=== PATIENT | female | born 1975 | race Caucasian/White ===

== ENCOUNTER 2018-09-14 20:09 | Emergency (ER) | payer BC ==
[2018-09-14] MEDS ORDERED: Sodium Chloride 0.9% 10 ML Syringe FLUSH PRN (20:30)
--- NOTE | 2018-09-14 20:34 | EDM.PDOC ---
ED HPI GENERAL MEDICAL PROBLEM - General Chief Complaint: Chest Pain Stated Complaint: [facility] Time Seen by Provider: 09/14/18 20:26 Source of Information: Reports: Patient, Family, RN Notes Reviewed History Limitations: Reports: No Limitations - History of Present Illness INITIAL COMMENTS - FREE TEXT/NARRATIVE: 43-year-old female presents emergency department today via EMS services for sudden onset epigastric pain, she states she's never had pain like this before it is right the center of her chest sharp shooting through to the back she states she was so waiting for dinner prior to the onset of pain, has consumed a large amount alcohol today, surgical history of cholecystectomy and appendectomy , cardiovascular history of hypertension, no nausea vomiting no diaphoresis no shortness of breath epigastric pain Pain Score (Numeric/FACES): 4 - Related Data Allergies Allergy/AdvReac Type Severity Reaction Status Date / Time doxycycline Allergy Rash Verified 09/14/18 20:16 nickel Allergy Rash Verified 09/14/18 20:16 Home Meds: Home Meds Diltiazem HCl [Cartia Xt] 240 mg PO DAILY 09/14/18 [History] Lisinopril/Hydrochlorothiazide [Lisinopril-Hctz 10-12.5 mg Tab] 1 tab PO DAILY 09/14/18 [History] Omeprazole Magnesium [Prilosec Otc] 20 mg PO DAILY 09/14/18 [History] Past Medical History Cardiovascular History: Reports: Arrhythmia, Hypertension Gastrointestinal History: Reports: Other (See Below) Other Gastrointestinal History: acid reflux [employer] History: Reports: Musculoskeletal History: Reports: Arthritis, Fracture, Other (See Below) Other Musculoskeletal History: left foot fx - Past Surgical History GI Surgical History: Reports: Appendectomy, Cholecystectomy Female Surgical History: Reports: Section, Hysterectomy Neurological Surgical History: Reports: Other (See Below) Other Neurological Surgeries/Procedures: L5-S1 microdiscectomy Social & Family History - Tobacco Use Smoking Status *Q: Never Smoker - Caffeine Use Caffeine Use: Reports: Energy Drinks, Soda - Recreational Drug Use Recreational Drug Use: No ED ROS GENERAL - Review of Systems Review Of Systems: See Below Constitutional: Reports: No Symptoms HEENT: Reports: No Symptoms Respiratory: Reports: No Symptoms Cardiovascular: Reports: No Symptoms GI/Abdominal: Reports: Abdominal Pain (Epigastric pain), Flatus. Denies: Nausea , Vomiting : Reports: No Symptoms Musculoskeletal: Reports: No Symptoms Skin: Reports: No Symptoms Neurological: Reports: No Symptoms ED EXAM, GENERAL - Physical Exam Exam: See Below Free Text/Narrative:: General: Female, moderate discomfort secondary to pain, alert and oriented x3 HEENT: head is atraumatic normocephalic, eyes pupils equal round reactive to light, sclera clear no conjunctivitis appreciated. Ears tympanic membranes clear and jones landmarks and light reflex are present bilaterally canals are clear. Nose no septal deviation, nares are clear, no blood present. Mouth mucosa is moist and pink no erythema or exudate noted in soft palate, tongue is midline uvula is midline, dentition is intact. Neck: Supple no thyromegaly no tracheal deviation. Nodes: Cervical nodes subclavicular nodes nontender no palpable lymphadenopathy noted. Lungs: clear to auscultation bilaterally with symmetrical respirations, no adventitious noise appreciated. CV: Regular rate and rhythm S1 and S2 appreciated no murmurs rubs or gallops noted. Abdomen: Soft, tender in epigastric region pain is improved with pressure, no palpable masses or organomegaly appreciated, no distention no guarding bowel sounds are present, Neuro: Cranial nerves II through XII intact GCS 15, Skin: Warm and dry, intact Extremities: No lower extremity edema appreciated, pedal pulse is +2. Course - Vital Signs Last Recorded V/S: Last Vital Signs Temp 97.2 F 09/14/18 20:27 Pulse 81 09/14/18 23:00 Resp 17 09/14/18 23:00 BP 109/69 09/14/18 23:00 Pulse Ox 98 09/14/18 23:00 - Orders/Labs/Meds Orders: Active Orders 24 hr Category Date Time Status Cardiac Monitoring [RC] .As Directed Care 09/14/18 20:30 Active Sodium Chloride 0.9% [Normal Saline] 1,000 ml Med 09/14/18 20:45 Active IV ASDIRECTED Sodium Chloride 0.9% [Normal Saline] 1,000 ml Med 09/14/18 22:15 Active IV ASDIRECTED Sodium Chloride 0.9% [Saline Flush] Med 09/14/18 20:30 Active 10 ml FLUSH ASDIRECTED PRN Saline Lock Insert [OM.PC] Stat Oth 09/14/18 20:30 Ordered Medication Orders Sodium Chloride (Normal Saline) 1,000 mls @ 999 mls/hr IV ASDIRECTED AXEL Last Admin: 09/14/18 20:44 Dose: 999 mls/hr Sodium Chloride (Normal Saline) 1,000 mls @ 500 mls/hr IV ASDIRECTED AXEL Last Admin: 09/14/18 22:28 Dose: 500 mls/hr Sodium Chloride (Saline Flush) 10 ml FLUSH ASDIRECTED PRN PRN Reason: Keep Vein Open Last Admin: 09/14/18 20:46 Dose: 10 ml Labs: Laboratory Tests 09/14/18 09/14/18 09/14/18 Range/Units 20:42 20:42 20:42 WBC 8.8 (4.5-11.0) K/uL RBC 4.40 (3.30-5.50) M/uL Hgb 13.5 (12.0-15.0) g/dL Hct 39.5 (36.0-48.0) % MCV 90 (80-98) fL MCH 31 (27-31) pg MCHC 34 (32-36) % Plt Count 339 (150-400) K/uL Neut % (Auto) 53 (36-66) % Lymph % (Auto) 37 (24-44) % [place] % (Auto) 9 H (2-6) % Eos % (Auto) 1 L (2-4) % Baso % (Auto) 0 (0-1) % Sodium 142 (140-148) mmol/L Potassium 3.1 L (3.6-5.2) mmol/L Chloride 102 (100-108) mmol/L Carbon Dioxide 27 (21-32) mmol/L Anion Gap 16.1 H (5.0-14.0) mmol/L BUN 9 (7-18) mg/dL Creatinine 0.9 (0.6-1.0) mg/dL Est Cr Clr Drug Dosing 68.16 mL/min Estimated GFR (MDRD) > 60 (>60) Glucose 138 H (74-106) mg/dL Calcium 9.2 (8.5-10.1) mg/dL Total Bilirubin 0.3 (0.2-1.0) mg/dL AST 63 H (15-37) U/L ALT 57 (12-78) U/L Alkaline Phosphatase 88 (46-116) U/L CK-MB (CK-2) 1.7 (0-3.6) mg/mL Troponin I < 0.017 (0.000-0.056) ng/mL Total Protein 7.4 (6.4-8.2) g/dL Albumin 3.6 (3.4-5.0) g/dL Globulin 3.8 H (2.3-3.5) g/dL Albumin/Globulin Ratio 1.0 L (1.2-2.2) Lipase 329 (73-393) U/L Ethyl Alcohol 216 mg/dL 09/14/18 Range/Units 22:28 WBC (4.5-11.0) K/uL RBC (3.30-5.50) M/uL Hgb (12.0-15.0) g/dL Hct (36.0-48.0) % MCV (80-98) fL MCH (27-31) pg MCHC (32-36) % Plt Count (150-400) K/uL Neut % (Auto) (36-66) % Lymph % (Auto) (24-44) % [place] % (Auto) (2-6) % Eos % (Auto) (2-4) % Baso % (Auto) (0-1) % Sodium (140-148) mmol/L Potassium (3.6-5.2) mmol/L Chloride (100-108) mmol/L Carbon Dioxide (21-32) mmol/L Anion Gap (5.0-14.0) mmol/L BUN (7-18) mg/dL Creatinine (0.6-1.0) mg/dL Est Cr Clr Drug Dosing mL/min Estimated GFR (MDRD) (>60) Glucose (74-106) mg/dL Calcium (8.5-10.1) mg/dL Total Bilirubin (0.2-1.0) mg/dL AST (15-37) U/L ALT (12-78) U/L Alkaline Phosphatase (46-116) U/L CK-MB (CK-2) (0-3.6) mg/mL Troponin I < 0.017 (0.000-0.056) ng/mL Total Protein (6.4-8.2) g/dL Albumin (3.4-5.0) g/dL Globulin (2.3-3.5) g/dL Albumin/Globulin Ratio (1.2-2.2) Lipase (73-393) U/L Ethyl Alcohol mg/dL Meds: Medications Generic Name Dose Route Start Last Admin Trade Name Freq PRN Reason Stop Dose Admin Sodium Chloride 1,000 mls @ 999 mls/hr 09/14/18 20:45 09/14/18 20:44 Normal Saline IV 999 mls/hr ASDIRECTED AXEL Administration Sodium Chloride 1,000 mls @ 500 mls/hr 09/14/18 22:15 09/14/18 22:28 Normal Saline IV 500 mls/hr ASDIRECTED AXEL Administration Sodium Chloride 10 ml 09/14/18 20:30 09/14/18 20:46 Saline Flush FLUSH 10 ml ASDIRECTED PRN Administration Keep Vein Open Discontinued Medications Generic Name Dose Route Start Last Admin Trade Name Freq PRN Reason Stop Dose Admin Al Hydroxide/Mg Hydroxide 15 0 ml 09/14/18 20:37 09/14/18 20:44 ml/ Lidocaine HCl 15 ml PO 09/14/18 20:38 30 ml ONETIME ONE Administration Lorazepam 1 mg 09/14/18 20:59 09/14/18 21:08 Ativan IVPUSH 09/14/18 21:00 1 mg ONETIME ONE Administration Morphine Sulfate 1 mg 09/14/18 20:56 09/14/18 23:16 Morphine IVPUSH 09/14/18 20:57 1 mg ONETIME ONE Administration Pantoprazole Sodium 40 mg 09/14/18 22:15 09/14/18 22:22 Protonix Iv IVPUSH 09/14/18 22:16 40 mg ONETIME ONE Administration Departure - Departure Time of Disposition: 23:39 Disposition: Home, Self-Care 01 Condition: Fair Clinical Impression: Epigastric abdominal pain Referrals: PCP,None [Primary Care Provider] - Forms: ED Department Discharge Additional Instructions: Use Percocet as needed for pain control, please follow-up with your primary care provider upon return home, recommend increasing your omeprazole from 20 mg a day to 20 mg twice a day, call return to the emergency department worsening of symptoms - My Orders Last 24 Hours: My Active Orders 09/14/18 20:30 Cardiac Monitoring [RC] .As Directed Sodium Chloride 0.9% [Saline Flush] 10 ml FLUSH ASDIRECTED PRN Saline Lock Insert [OM.PC] Stat 09/14/18 20:45 Sodium Chloride 0.9% [Normal Saline] 1,000 ml IV ASDIRECTED 09/14/18 22:15 Sodium Chloride 0.9% [Normal Saline] 1,000 ml IV ASDIRECTED - Assessment/Plan Last 24 Hours: My Active Orders 09/14/18 20:30 Cardiac Monitoring [RC] .As Directed Sodium Chloride 0.9% [Saline Flush] 10 ml FLUSH ASDIRECTED PRN Saline Lock Insert [OM.PC] Stat 09/14/18 20:45 Sodium Chloride 0.9% [Normal Saline] 1,000 ml IV ASDIRECTED 09/14/18 22:15 Sodium Chloride 0.9% [Normal Saline] 1,000 ml IV ASDIRECTED Plan: Assessment Acuity = acute Site and laterality = epigastric abdominal pain Etiology = suspicious for gastroesophageal reflux disease Manifestations = none Location of injury = Home Lab values = CBC, CMP, troponin negative 2 EKG demonstrates normal sinus rhythm chest x-ray shows no acute process Plan I did review lab work EKG chest x-ray results with her she did get some relief from Protonix IV as well as morphine, no relief from nitroglycerin no relief from GI cocktail plan is discharge home prescription written for Percocet 5/325 one tab by mouth 3 times a day total #10 she will follow-up with her primary care upon return home This note was dictated using [employer] recognition software please call with any questions on syntax or grammar.
[2018-09-14] MEDS ORDERED: Alum Hydrox/Mag Hydrox/Simeth 15 ML, Lidocaine 2% 15 ML PO ONE ×2 (20:37)
[2018-09-14] MEDS ORDERED: Sodium Chloride 0.9% 1,000 ML IV SCH ×2 (20:45→22:15)
[2018-09-14] MEDS ORDERED: Morphine 2 MG/ML Syringe IVPUSH ONE (20:56)
[2018-09-14] MEDS ORDERED: LORazepam 2 MG/ML SDV IVPUSH ONE (20:59)
--- NOTE | 2018-09-14 21:40 | CRLCR ---
INDICATION: Chest pain. TECHNIQUE: AP portable chest x-ray. FINDINGS: The heart size is upper limits of normal. Shallow inspiration. No focal infiltrate or consolidation either lung. Minimal elevation right hemidiaphragm. Surgical clips right upper abdomen. Mild ectasia ascending aorta and aortic arch. Chest otherwise negative without acute disease. Dictated by Sotero Kline MD @ Sep 14 2018 9:39PM Signed by Dr. Sotero Kline @ Sep 14 2018 9:39PM
[2018-09-14] MEDS ORDERED: Pantoprazole 40 MG Vial IVPUSH ONE (22:15)
[2018-09-14] MEDS ORDERED: HYDROmorphone 1 MG/ML Syringe IVPUSH ONE (23:56)
== END 2018-09-15 00:21 | disposition home or self-care (01) ==
LOC: JP.ED 20:09
DX: R10.13 Epigastric pain (principal); I10 Essential (primary) hypertension; Z90.49 Acquired absence of other specified parts of digestive tract; Z90.710 Acquired absence of both cervix and uterus; Z79.899 Other long term (current) drug therapy; Z88.8 Allergy status to other drugs, medicaments and biological substances
CPT/HCPCS: 36415; 71045; 80053; 82553; 83690; 84484; 85025; 96361; 96374; 96375; 99284; A9270; C9113; G0480; J1170; J2060; J2270; J7030